=== PATIENT | female | born 1985 | race Caucasian/White ===

== ENCOUNTER 2018-02-19 12:21 | Emergency (ER) | payer OTHER ==
[~2018-02-19] VITALS: Ht 154.9 cm; Wt 53.8 kg
--- NOTE | 2018-02-19 12:29 | NUR ---
PT AMBULATES TO BED 12
[2018-02-19 12:30] VITALS: BP 108/64
--- NOTE | 2018-02-19 12:35 | NUR ---
32YO F BIB SELF FOR POSSIBLE BARTHOLIN CYST X4-5YRS. PT HAS BEEN TREATED WITH ABX BEFORE WITH NO IMPROVEMENT. DENIES N/V/D; SKIN IS PINK/WARM/DRY; AAOX4 WITH EVEN AND STEADY GAIT; LUNGS CLEAR BL; HR EVEN AND REGULAR; PT DENIES ANY FEVER, CP, SOB, OR COUGH AT THIS TIME; PATIENT STATES PAIN OF 5/10 AT THIS TIME; VSS; PATIENT POSITIONED FOR COMFORT; HOB ELEVATED; BEDRAILS UP X2; BED DOWN. ER MD MADE AWARE OF PT STATUS.
--- NOTE | 2018-02-19 13:10 | NUR ---
DR GALVAN AT BEDSIDE TO EXAMINE WOUND.
[2018-02-19 13:18] VITALS: BP 108/64
--- NOTE | 2018-02-19 13:18 | NUR ---
Patient discharged with v/s stable. Written and verbal after care instructions given and explained. Patient verbalized understanding. Ambulatory with steady gait. All questions addressed prior to discharge. Advised to follow up with PMD within 1-2 days.
== END 2018-02-19 13:18 | disposition home or self-care (01) ==
LOC: MED 12:21
DX: L98.8 Other specified disorders of the skin and subcutaneous tissue (principal); Z88.6 Allergy status to analgesic agent
CPT/HCPCS: 99281

== ENCOUNTER 2018-08-23 11:44 | Emergency (ER) | payer OTHER ==
[~2018-08-23] VITALS: Ht 154.9 cm; Wt 55.6 kg
[2018-08-23 11:47] VITALS: BP 122/78
--- NOTE | 2018-08-23 11:50 | NUR ---
BIB SELF. AAO X 4 C/O DIARRHEA X3 DAYS. LAST BM TODAY X 3 LOOSE STOOL. PT REPORTS GREENISH/BLACK WATERY DIARRHEA. PT REPORTS CRAMPING ABD AND LOWER BACK PAIN 11/06. DENIES N/V, FEVER, COUGH. DENIES DYSURIA. DENIES SOB. HOB UP. BED SIDE RAILS UP X1. ON LOW BED POSITION, LOCKED. ER MADE AWARE OF PT STATUS.
--- NOTE | 2018-08-23 12:19 | NUR ---
DR MANRIQUE AT BEDSIDE FOR PT EVALUATION.
[2018-08-23] MEDS ORDERED: NACL 0.9% 1,000 ML IV ONE (12:25)
[2018-08-23 13:06] LABS: BASOPHILS % (AUTO) 0.3 % (0.0-2.0); EOSINOPHILS # (AUTO) 0.2 K/uL (0-0.4); EOSINOPHILS % (AUTO) 3.8 % (0.0-4.0); HEMOGLOBIN 15.3 g/dL (12.0-16.0); LYMPHOCYTES # (AUTO) 1.2 K/uL (2.5-16.5); LYMPHOCYTES % (AUTO) 28.1 % (20.5-51.1); MEAN CORPUSCULAR HEMOGLOBIN 32 pg (27-31); MEAN CORPUSCULAR HGB CONC 34 g/dL (33-37); MEAN CORPUSCULAR VOLUME 94.3 fL (80-94); MONOCYTES # (AUTO) 0.3 K/uL (0.8-1.0); MONOCYTES % (AUTO) 6.7 % (1.7-9.3); NEUTROPHILS # (AUTO) 2.7 K/uL (1.8-7.7); NEUTROPHILS % (AUTO) 61.1 % (42.2-75.2); PLATELET COUNT (AUTO) 279 K/uL (140-450); RED BLOOD CELL COUNT(AUTO) 4.78 MIL/uL (4.20-5.40); WHITE BLOOD COUNT (AUTO) 4.4 K/uL (4.8-10.8)
[2018-08-23 13:07] LABS: APPEARANCE,URINE SL CLOUDY (CLEAR); BILIRUBIN,URINE NEGATIVE (NEGATIVE); BLOOD, URINE 3+ (NEGATIVE); COLOR,URINE YELLOW (YELLOW); LEUKOCYTE ESTERASE ,URINE TRACE (NEGATIVE); NITRITE, URINE NEGATIVE (NEGATIVE); PH,URINE 5.5 (5.0-9.0); UGLUCOSE NEGATIVE (NEGATIVE)
[2018-08-23 13:13] LABS: ANION GAP 12.1 (8-16); CARBON DIOXIDE 25.7 mmol/L (21-32); CREATININE 0.7 mg/dL (0.6-1.3); POTASSIUM 4.8 mmol/L (3.5-5.1)
[2018-08-23 13:19] LABS: ALBUMIN 3.8 g/dL (3.4-5.0); TOTAL BILIRUBIN 1.3 mg/dL (0.0-1.0)
[2018-08-23 13:42] LABS: WBC,URINE 0-5 /HPF (0-5)
[2018-08-23 13:44] LABS: YEAST,URINE Rare /HPF (None Seen)
[2018-08-23 16:40] VITALS: BP 121/72
== END 2018-08-23 16:40 | disposition home or self-care (01) ==
LOC: MED 11:44
DX: R19.7 Diarrhea, unspecified (principal); Z88.5 Allergy status to narcotic agent
CPT/HCPCS: 36415; 80053; 81001; 81025; 85025; 96360; 99283; J7030; 81002; 96361

== ENCOUNTER 2019-01-21 15:30 | Emergency (ER) | payer OTHER ==
[~2019-01-21] VITALS: Ht 152.4 cm; Wt 58.2 kg
[2019-01-21 15:36] VITALS: BP 128/84
--- NOTE | 2019-01-21 15:45 | NUR ---
Patient ambulated to bed 7. RN evaluating patient at bedside.
--- NOTE | 2019-01-21 15:51 | NUR ---
Dr. Morel evaluating patient at bedside.
--- NOTE | 2019-01-21 15:54 | NUR ---
PT C/O HEADACHE AND RT SIDED GROIN PAIN X5 HRS. 02/06 SHARP INTERMITTENT CRAMPING. DENIES FEVER. NAUSEA WHEN PAIN OCCURS. DENIES V/D. PT STATES WHITE, NON ODOROUS VAGINAL DISCHARGE. PT STATES SHE NOTICED AN INCREASE IN FREQUENCY OF URINATION, DENIES PAINFUL URINATION. LMP 12/04/09. PT HAS NOT TAKEN ANY MEDS. PT RESTING IN BED, VSS. MEDHX: DENIES ALLERGIES: CODEINE, MORPHINE
[2019-01-21] MEDS ORDERED: KETOROLAC 60 MG/2 ML VIAL IM ONE (16:05)
--- NOTE | 2019-01-21 16:55 | NUR ---
PT AMBULATED TO RESTROOM.
[2019-01-21 17:00] LABS: BASOPHILS % (AUTO) 0.5 % (0.0-2.0); EOSINOPHILS # (AUTO) 0.1 K/uL (0-0.4); EOSINOPHILS % (AUTO) 1.7 % (0.0-4.0); HEMATOCRIT 43.4 % (36-48); HEMOGLOBIN 14.7 g/dL (12.0-16.0); LYMPHOCYTES # (AUTO) 2.8 K/uL (2.5-16.5); LYMPHOCYTES % (AUTO) 47.6 % (20.5-51.1); MEAN CORPUSCULAR HEMOGLOBIN 32 pg (27-31); MEAN CORPUSCULAR HGB CONC 34 g/dL (33-37); MEAN CORPUSCULAR VOLUME 95.2 fL (80-94); MONOCYTES # (AUTO) 0.3 K/uL (0.8-1.0); MONOCYTES % (AUTO) 5.2 % (1.7-9.3); NEUTROPHILS # (AUTO) 2.7 K/uL (1.8-7.7); PLATELET COUNT (AUTO) 291 K/uL (140-450); RED BLOOD CELL COUNT(AUTO) 4.56 MIL/uL (4.20-5.40); RED CELL DISTRIBUTION WIDTH 12.1 % (11.6-13.7); WHITE BLOOD COUNT (AUTO) 5.9 K/uL (4.8-10.8)
[2019-01-21 17:12] LABS: ANION GAP 15.3 (8-16); CARBON DIOXIDE 25.4 mmol/L (21-32); CREATININE 0.6 mg/dL (0.6-1.3); POTASSIUM 3.7 mmol/L (3.5-5.1)
[2019-01-21 17:17] LABS: ALBUMIN 4.3 g/dL (3.4-5.0); TOTAL BILIRUBIN 1.8 mg/dL (0.0-1.0)
--- NOTE | 2019-01-21 17:19 | NUR ---
PT RESTING IN BED, VSS AT THIS TIME.
[2019-01-21 17:51] LABS: APPEARANCE,URINE CLEAR (CLEAR); BILIRUBIN,URINE NEGATIVE (NEGATIVE); BLOOD, URINE TRACE-I (NEGATIVE); LEUKOCYTE ESTERASE ,URINE NEGATIVE (NEGATIVE); NITRITE, URINE NEGATIVE (NEGATIVE); PH,URINE 5.5 (5.0-9.0); UGLUCOSE NEGATIVE (NEGATIVE)
[2019-01-21 17:59] LABS: COLOR,URINE STRAW (YELLOW)
[2019-01-21 18:37] LABS: RBC,URINE NONE SEEN /HPF (0-5)
[2019-01-21 18:38] LABS: WBC,URINE NONE SEEN /HPF (0-5)
[2019-01-21 18:56] VITALS: BP 124/82
--- NOTE | 2019-01-21 18:56 | NUR ---
Patient discharged with v/s stable. Written and verbal after care instructions given and explained. Patient alert, oriented and verbalized understanding of instructions. Ambulatory with to home. All questions addressed prior to discharge. ID band removed. Patient advised to follow up with PMD. Rx of NAPROSYN given. Patient educated on indication of medication including possible reaction and side effects. Opportunity to ask questions provided and answered.
== END 2019-01-21 18:56 | disposition home or self-care (01) ==
LOC: MED 15:30
DX: R51 Headache (principal); R10.31 Right lower quadrant pain; R42 Dizziness and giddiness; Z88.5 Allergy status to narcotic agent
CPT/HCPCS: 36415; 76856; 80053; 81001; 81025; 85025; 93976; 96372; 99284; J1885; Q0092

== ENCOUNTER 2019-12-21 16:28 | Emergency (ER) | payer OTHER ==
[~2019-12-21] VITALS: Ht 152.4 cm; Wt 58.1 kg
[2019-12-21 16:30] VITALS: BP 133/78
--- NOTE | 2019-12-21 16:42 | NUR ---
PATIENT AMBULATED TO BED 7.
--- NOTE | 2019-12-21 16:48 | NUR ---
dr lynne at bedside evaluating pt.
--- NOTE | 2019-12-21 16:52 | NUR ---
aleena at bedside.
--- NOTE | 2019-12-21 16:55 | NUR ---
labs at bedside.
[2019-12-21 17:02] LABS: BASOPHILS % (AUTO) 0.4 % (0.0-2.0); EOSINOPHILS # (AUTO) 0.1 K/uL (0-0.4); EOSINOPHILS % (AUTO) 2.1 % (0.0-4.0); HEMATOCRIT 42.8 % (36-48); HEMOGLOBIN 14.6 g/dL (12.0-16.0); LYMPHOCYTES # (AUTO) 2.5 K/uL (2.5-16.5); LYMPHOCYTES % (AUTO) 42.3 % (20.5-51.1); MEAN CORPUSCULAR HEMOGLOBIN 33 pg (27-31); MEAN CORPUSCULAR HGB CONC 34 g/dL (33-37); MEAN CORPUSCULAR VOLUME 95.4 fL (80-94); MONOCYTES # (AUTO) 0.3 K/uL (0.8-1.0); MONOCYTES % (AUTO) 4.7 % (1.7-9.3); NEUTROPHILS % (AUTO) 50.5 % (42.2-75.2); PLATELET COUNT (AUTO) 304 K/uL (140-450); RED BLOOD CELL COUNT(AUTO) 4.48 MIL/uL (4.20-5.40); WHITE BLOOD COUNT (AUTO) 5.9 K/uL (4.8-10.8)
--- NOTE | 2019-12-21 17:10 | NUR ---
C/O VAGINAL BLEEDING , LOWER ABDOMINAL PAIN 8/10 X 1 MONTH. DENIES DYSURIA.PT AOX4 , AFIBRILE , AMBULATORY WITH STEADY GAIT , PINK PALPEBRAL CONJUNCTIVA , ANICTERIC SCLERA , SCE , FLAT SOFT ABDOMEN. MED HX: OVARY CYST
[2019-12-21 17:30] LABS: ALBUMIN 4.2 g/dL (3.4-5.0); ANION GAP 18.1 (8-16); CARBON DIOXIDE 20.9 mmol/L (21-32); CREATININE 0.9 mg/dL (0.6-1.3); TOTAL BILIRUBIN 1.8 mg/dL (0.0-1.0)
[2019-12-21 18:01] VITALS: BP 130/78
--- NOTE | 2019-12-21 18:03 | NUR ---
Patient discharged with v/s stable. Written and verbal after care instructions given and explained. Patient verbalized understanding. Ambulatory with steady gait. All questions addressed prior to discharge. Advised to follow up with PMD.
[2019-12-21 18:08] LABS: BILIRUBIN,URINE NEGATIVE (NEGATIVE); BLOOD, URINE 3+ (NEGATIVE); UGLUCOSE NEGATIVE (NEGATIVE)
[2019-12-21 18:15] LABS: APPEARANCE,URINE BLOODY (CLEAR); COLOR,URINE RED (YELLOW); LEUKOCYTE ESTERASE ,URINE NEGATIVE (NEGATIVE); NITRITE, URINE NEGATIVE (NEGATIVE)
[2019-12-21 18:16] LABS: RBC,URINE TOO NUMEROUS TO COUN /HPF (0-5); WBC,URINE NONE SEEN /HPF (0-5)
== END 2019-12-21 18:03 | disposition home or self-care (01) ==
LOC: MED 16:28
DX: N93.8 Other specified abnormal uterine and vaginal bleeding (principal); N39.0 Urinary tract infection, site not specified; Z88.5 Allergy status to narcotic agent
CPT/HCPCS: 36415; 76856; 80053; 81001; 81025; 85025; 99284; Q0092

== ENCOUNTER 2019-12-23 18:19 | Emergency (ER) | payer OTHER ==
[~2019-12-23] VITALS: Ht 160 cm; Wt 54.4 kg
[2019-12-23 18:29] VITALS: BP 111/76
--- NOTE | 2019-12-23 18:34 | NUR ---
34 Y/O FEMALE C/O SCANT BLEEDING FOR 1 MONTH WHICH HAS WORSENED ON SUNDAY AND TODAY, PT REPORTS HEAVY FLOW WITH LARGE CLOTS. C/O WEAKNESS, FATIGUE AND DIZZINESS X2 WEEKS. DENIES ANY N/V/D. PT IS PALE, WARM AND DRY. VSS. AMBULATORY WITH STEADY GAIT NO PMH
[2019-12-23 18:59] LABS: BASOPHILS % (AUTO) 0.5 % (0.0-2.0); EOSINOPHILS # (AUTO) 0.1 K/uL (0-0.4); EOSINOPHILS % (AUTO) 1.8 % (0.0-4.0); HEMATOCRIT 40.9 % (36-48); HEMOGLOBIN 14.2 g/dL (12.0-16.0); LYMPHOCYTES # (AUTO) 2.7 K/uL (2.5-16.5); LYMPHOCYTES % (AUTO) 42.4 % (20.5-51.1); MEAN CORPUSCULAR HEMOGLOBIN 33 pg (27-31); MEAN CORPUSCULAR HGB CONC 35 g/dL (33-37); MEAN CORPUSCULAR VOLUME 94.2 fL (80-94); MONOCYTES # (AUTO) 0.3 K/uL (0.8-1.0); MONOCYTES % (AUTO) 5.3 % (1.7-9.3); NEUTROPHILS # (AUTO) 3.2 K/uL (1.8-7.7); PLATELET COUNT (AUTO) 290 K/uL (140-450); RED BLOOD CELL COUNT(AUTO) 4.34 MIL/uL (4.20-5.40); RED CELL DISTRIBUTION WIDTH 11.8 % (11.6-13.7); WHITE BLOOD COUNT (AUTO) 6.4 K/uL (4.8-10.8)
[2019-12-23 19:32] VITALS: BP 111/76
== END 2019-12-23 19:26 | disposition home or self-care (01) ==
LOC: MED 18:19
DX: N93.8 Other specified abnormal uterine and vaginal bleeding (principal); Z88.5 Allergy status to narcotic agent
CPT/HCPCS: 36415; 81025; 85025; 99283

== ENCOUNTER 2020-04-15 18:09 | Emergency (ER) | payer OTHER ==
[~2020-04-15] VITALS: Ht 152.4 cm; Wt 57.6 kg
[2020-04-15 18:14] VITALS: BP 130/83
--- NOTE | 2020-04-15 18:18 | NUR ---
Patient being evaluated by physician at [facility].
--- NOTE | 2020-04-15 18:18 | NUR ---
Kecia sims in [facility] - 04/15/20 at 1818 by MED1 Patient being evaluated by physician at bedside.
[2020-04-15] MEDS ORDERED: HALOPERIDOL IM 5 MG/ML VIAL IM STA (18:20)
[2020-04-15] MEDS ORDERED: KETOROLAC 30 MG/ML VIAL IM STA (18:20)
[2020-04-15] MEDS ORDERED: ACETAMINOPHEN 325 MG TAB PO STA (19:20)
[2020-04-15] MEDS ORDERED: PROCHLORPERAZINE 5 MG TAB PO ONE (19:20)
[2020-04-15] MEDS ORDERED: KETOROLAC 30 MG/ML VIAL ONE (19:35)
--- NOTE | 2020-04-15 19:50 | NUR ---
PT REFUSED TYLENOL - STATES SHE TOOK A DOSE ALREADY AT 1900 TODAY. ERMD MADE AWARE.
[2020-04-15 20:00] VITALS: BP 130/83
--- NOTE | 2020-04-15 20:00 | NUR ---
Patient discharged with v/s stable. Written and verbal after care instructions given and explained. Patient alert, oriented and verbalized understanding of instructions. Ambulatory with steady gait. All questions addressed prior to discharge. ID band removed. Patient advised to follow up with PMD. Rx of MOTRIN & COMPAZINE given. Patient educated on indication of medication including possible reaction and side effects. Opportunity to ask questions provided and answered.
== END 2020-04-15 20:00 | disposition home or self-care (01) ==
LOC: MED 18:09
DX: G43.909 Migraine, unspecified, not intractable, without status migrainosus (principal)
CPT/HCPCS: 96372; 99283; J1885; Q0164

== ENCOUNTER 2020-06-25 20:18 | Emergency (ER) | payer OTHER ==
[~2020-06-25] VITALS: Ht 152.4 cm; Wt 56.7 kg
[2020-06-25 20:25] VITALS: BP 117/90
--- NOTE | 2020-06-25 20:25 | NUR ---
PATINET TO REMAIN IN OF TENT FOR MEDICAL EVALUATION.
--- NOTE | 2020-06-25 20:30 | NUR ---
SEE COMPLETE ASSESSMENT.
--- NOTE | 2020-06-25 21:07 | NUR ---
ERMD EVALUATING PATIENT IN OF TENT.
[2020-06-25] MEDS ORDERED: LOPE-289 PO (21:20)
[2020-06-25] MEDS ORDERED: IBUP-2213 PO (21:20)
[2020-06-25] MEDS ORDERED: ONDA8TAB87 PO (21:20)
--- NOTE | 2020-06-25 21:30 | NUR ---
NOVEL COVID TEST COLLECTED AND SENT TO LAB.
[2020-06-25 21:35] VITALS: BP 117/90
--- NOTE | 2020-06-25 21:35 | NUR ---
Patient discharged with v/s stable. Written and verbal after care instructions given and explained. Patient alert, oriented and verbalized understanding of instructions. Ambulatory with steady gait. All questions addressed prior to discharge. ID band removed. Patient advised to follow up with PMD. Rx of IBUPROFEN, LOPERAMIDE, ONDANSETRON given. Patient educated on indication of medication including possible reaction and side effects. Opportunity to ask questions provided and answered.
== END 2020-06-25 21:35 | disposition home or self-care (01) ==
LOC: MED 20:18
DX: U07.1 COVID-19 (principal)
CPT/HCPCS: 99283; U0003

== ENCOUNTER 2020-07-21 17:01 | Emergency (ER) | payer OTHER ==
[~2020-07-21] VITALS: Ht 152.4 cm; Wt 55.3 kg
[~2020-07-21 17:01] MED LIST: IBUP-2213 PO; LOPE-289 PO; ONDA8TAB87 PO
[2020-07-21 17:14] VITALS: BP 119/77
[2020-07-21] MEDS ORDERED: ALBU0.0912 IH (18:27)
[2020-07-21] MEDS ORDERED: AZIT250T3 PO (18:28)
[2020-07-21] MEDS ORDERED: BENZ-196 PO (18:28)
[2020-07-21] MEDS ORDERED: PRED10TA5 PO (18:28)
[2020-07-21 18:38] VITALS: BP 119/77
== END 2020-07-21 18:38 | disposition home or self-care (01) ==
LOC: MED 17:01
DX: R05 Cough (principal); Z88.5 Allergy status to narcotic agent; Z79.899 Other long term (current) drug therapy
CPT/HCPCS: 71045; 99283

== ENCOUNTER 2021-03-18 15:01 | Emergency (ER) | payer OTHER ==
[~2021-03-18] VITALS: Ht 149.9 cm; Wt 58.1 kg
[~2021-03-18 15:01] MED LIST changes: +ALBU0.0912 IH; +AZIT250T3 PO; +BENZ-196 PO; +PRED10TA5 PO
[2021-03-18 15:09] VITALS: BP 133/93
--- NOTE | 2021-03-18 17:10 | NUR ---
PT RETURNED BACK FROM XRAY INTO LOBBY
--- NOTE | 2021-03-18 18:21 | NUR ---
PT SWABBED FOR COVID NANCY AND FLU AT THIS TIME
[2021-03-18] MEDS ORDERED: PROM118S5 PO (19:42)
[2021-03-18] MEDS ORDERED: AZIT250T4 PO (19:42)
[2021-03-18 19:58] VITALS: BP 133/93
--- NOTE | 2021-03-18 19:59 | NUR ---
Pt assessed and discharged by CLAUDIA Chaidez
--- NOTE | 2021-03-18 20:00 | NUR ---
Patient discharged with v/s stable. Written and verbal after care instructions given and explained. Patient alert, oriented and verbalized understanding of instructions. Ambulatory with steady gait. All questions addressed prior to discharge. ID band removed. Patient advised to follow up with PMD. Rx of azithroymic and Promethazine DM given. Patient educated on indication of medication including possible reaction and side effects. Opportunity to ask questions provided and answered.
== END 2021-03-18 20:00 | disposition home or self-care (01) ==
LOC: MED 15:01
DX: J40 Bronchitis, not specified as acute or chronic (principal); Z20.822 Contact with and (suspected) exposure to COVID-19; Z88.5 Allergy status to narcotic agent; Z79.899 Other long term (current) drug therapy
CPT/HCPCS: 71045; 87426; 87804; 99284; Q0092

== ENCOUNTER 2021-04-30 13:36 | Emergency (ER) | payer OTHER ==
[~2021-04-30] VITALS: Ht 149.9 cm; Wt 72.6 kg
[~2021-04-30 13:36] MED LIST changes: +AZIT250T4 PO; +PROM118S5 PO
[2021-04-30 15:34] VITALS: BP 110/71
[2021-04-30] MEDS ORDERED: HYDROcodone/APAP 5/325 MG 1 TAB TAB PO ONE ×2 (17:30→20:45)
[2021-04-30] MEDS ORDERED: DIAZ5TAB8 PO (19:28)
[2021-04-30] MEDS ORDERED: NAPR-54 PO (19:28)
[2021-04-30 20:53] VITALS: BP 110/71
--- NOTE | 2021-04-30 20:53 | NUR ---
Patient discharged with v/s stable. Written and verbal after care instructions given and explained. Patient alert, oriented and verbalized understanding of instructions. Ambulatory with steady gait. All questions addressed prior to discharge. ID band removed. Patient advised to follow up with PMD. Rx of DIAZEPAM AND NAPROXEN given. Patient educated on indication of medication including possible reaction and side effects. Opportunity to ask questions provided and answered. VSS, A/OX4, CALM DEMEANOR, UNLABORED BREATHING, STEADY GAIT. PT SEEN BY ER MD, NO NURSING INTERVENTION NEEDED.
== END 2021-04-30 20:53 | disposition home or self-care (01) ==
LOC: MED 13:36
DX: M54.50 Low back pain, unspecified (principal); Z79.899 Other long term (current) drug therapy; Z88.5 Allergy status to narcotic agent
CPT/HCPCS: 72110; 99283

== ENCOUNTER 2021-06-23 22:54 | Emergency (ER) | payer OTHER ==
[~2021-06-23] VITALS: Ht 149.9 cm; Wt 60.8 kg
[~2021-06-23 22:54] MED LIST changes: +DIAZ5TAB8 PO; +NAPR-54 PO
[2021-06-23 23:00] VITALS: BP 122/79
--- NOTE | 2021-06-23 23:11 | NUR ---
PT IN RESTROOM FOR URINE COLLECTION.
--- NOTE | 2021-06-23 23:14 | NUR ---
PT IN TRIAGE FOR EKG.
--- NOTE | 2021-06-23 23:22 | NUR ---
PT TAKEN BACK TO LOBBY. WAITING FOR BED.
[2021-06-23 23:40] LABS: BASOPHILS % (AUTO) 0.3 % (0.0-2.0); EOSINOPHILS # (AUTO) 0.1 K/uL (0-0.4); EOSINOPHILS % (AUTO) 0.8 % (0.0-4.0); HEMATOCRIT 36.6 % (36-48); HEMOGLOBIN 12.6 g/dL (12.0-16.0); LYMPHOCYTES # (AUTO) 2.4 K/uL (2.5-16.5); LYMPHOCYTES % (AUTO) 29.8 % (20.5-51.1); MEAN CORPUSCULAR HEMOGLOBIN 33 pg (27-31); MEAN CORPUSCULAR HGB CONC 35 g/dL (33-37); MEAN CORPUSCULAR VOLUME 95.5 fL (80-94); MONOCYTES # (AUTO) 0.6 K/uL (0.8-1.0); MONOCYTES % (AUTO) 7.6 % (1.7-9.3); NEUTROPHILS % (AUTO) 61.5 % (42.2-75.2); PLATELET COUNT (AUTO) 285 K/uL (140-450); RED BLOOD CELL COUNT(AUTO) 3.83 MIL/uL (4.20-5.40); RED CELL DISTRIBUTION WIDTH 12.2 % (11.6-13.7); WHITE BLOOD COUNT (AUTO) 8.2 K/uL (4.8-10.8)
--- NOTE | 2021-06-23 23:51 | NUR ---
PT TAKEN TO ER BED 05
[2021-06-24 00:04] LABS: ALBUMIN 3.3 g/dL (3.4-5.0); ANION GAP 13.4 (8-16); CARBON DIOXIDE 25.7 mmol/L (21-32); CREATININE 0.6 mg/dL (0.6-1.3); POTASSIUM 4.1 mmol/L (3.5-5.1); TOTAL BILIRUBIN 0.4 mg/dL (0.0-1.0)
--- NOTE | 2021-06-24 00:57 | NUR ---
Dr. Almendarez examining patient.
[2021-06-24] MEDS ORDERED: ACETAMINOPHEN 325 MG TAB PO ONE (01:25)
[2021-06-24 01:29] LABS: APPEARANCE,URINE CLEAR (CLEAR); BILIRUBIN,URINE NEGATIVE (NEGATIVE); BLOOD, URINE NEGATIVE (NEGATIVE); COLOR,URINE YELLOW (YELLOW); LEUKOCYTE ESTERASE ,URINE NEGATIVE (NEGATIVE); NITRITE, URINE NEGATIVE (NEGATIVE); UGLUCOSE NEGATIVE (NEGATIVE)
--- NOTE | 2021-06-24 02:00 | NUR ---
35 YO F BIB SELF WITH C/O LEFT CHEST PAIN/LOWER ABD PAIN. PT DENIES N/F/V/ COUGH/ SOB. PT IS 15 WEEKS WITH 3RD CHILD. PT THINKS SHE OVER EXERTED HERSELF AND FEELS FATIGUED. A&O X4. EVEN AND STEADY GAIT. PMH: NONE ALLERGIES: CODIENE / MORPHINE
[2021-06-24] MEDS ORDERED: ACET-10509 PO (02:10)
[2021-06-24 02:51] VITALS: BP 120/76
--- NOTE | 2021-06-24 02:51 | NUR ---
Patient discharged with v/s stable. Written and verbal after care instructions given and explained. Patient alert, oriented and verbalized understanding of instructions. Ambulatory with steady gait. All questions addressed prior to discharge. ID band removed. Patient advised to follow up with PMD. Rx of TYLENOL given. Opportunity to ask questions provided and answered.
== END 2021-06-24 02:51 | disposition home or self-care (01) ==
LOC: MED 22:54
DX: O26.892 Other specified pregnancy related conditions, second trimester (principal); R10.30 Lower abdominal pain, unspecified; R53.1 Weakness; R42 Dizziness and giddiness; Z88.5 Allergy status to narcotic agent; Z79.899 Other long term (current) drug therapy; Z3A.15 15 weeks gestation of pregnancy
CPT/HCPCS: 36415; 80053; 81003; 81025; 85025; 93005; 99285

== ENCOUNTER 2021-09-13 05:18 | Emergency (ER) | payer OTHER ==
[~2021-09-13] VITALS: Ht 149.9 cm; Wt 64.4 kg
[2021-09-13 02:27] VITALS: BP 121/74
[~2021-09-13 05:18] MED LIST changes: +ACET-10509 PO; +ACETAMINOPHEN 325 MG TAB ONE; +ACETAMINOPHEN 325 MG TAB PO PRN
[2021-09-13 05:20] VITALS: BP 118/56
--- NOTE | 2021-09-13 05:20 | NUR ---
Kecia sims in [facility] - 09/13/21 at 0605 by ISA [id number]- PATIENT TX FROM L&D TO ER
--- NOTE | 2021-09-13 05:40 | NUR ---
FALL AT THE [employer] YESTERDAY AND LANDED ON STOMACH. PATIENT IS "6MTHS AND 4 DAYS ". PMH: DENIES ALLERGIES: CODEINE, MORPHINE
--- NOTE | 2021-09-13 06:05 | NUR ---
[id number]- PATIENT TX FROM L&D TO ER
== END 2021-09-13 06:47 | disposition home or self-care (01) ==
LOC: MED 05:18 → EDSTATUS 05:18 → MED 06:47
DX: O9A.212 Injury, poisoning and certain other consequences of external causes complicating pregnancy, second trimester (principal); S39.012A Strain of muscle, fascia and tendon of lower back, initial encounter; M62.838 Other muscle spasm; Z88.5 Allergy status to narcotic agent; X58.XXXA Exposure to other specified factors, initial encounter; Y93.89 Activity, other specified; Y92.89 Other specified places as the place of occurrence of the external cause; Y99.8 Other external cause status
CPT/HCPCS: 59025; 81000; 99282

== ENCOUNTER 2023-06-02 16:54 | Inpatient (IN) | payer OTHER ==
[~2023-06-02] VITALS: Ht 152.4 cm; Wt 70.8 kg
[2023-06-02] MEDS ORDERED: MAG SULF 2000 MG/WATER PREMIX 100 ML IV ONE (17:50)
[2023-06-02] MEDS ORDERED: PREN-537 PO (17:56)
[2023-06-02 18:29] LABS: BASOPHILS % (AUTO) 0.2 % (0.0-2.0); EOSINOPHILS % (AUTO) 0.5 % (0.0-4.0); HEMOGLOBIN 11.6 g/dL (12.0-16.0); LYMPHOCYTES # (AUTO) 1.4 K/uL (2.5-16.5); LYMPHOCYTES % (AUTO) 25.3 % (20.5-51.1); MEAN CORPUSCULAR HEMOGLOBIN 31 pg (27-31); MEAN CORPUSCULAR HGB CONC 34 g/dL (33-37); MEAN CORPUSCULAR VOLUME 90.6 fL (80-94); MONOCYTES # (AUTO) 0.3 K/uL (0.8-1.0); NEUTROPHILS # (AUTO) 3.7 K/uL (1.8-7.7); PLATELET COUNT (AUTO) 294 K/uL (140-450); RED BLOOD CELL COUNT(AUTO) 3.75 MIL/uL (4.20-5.40); RED CELL DISTRIBUTION WIDTH 13.6 % (11.6-13.7); WHITE BLOOD COUNT (AUTO) 5.4 K/uL (4.8-10.8)
[2023-06-02 18:34] LABS: APPEARANCE,URINE CLEAR (CLEAR); BILIRUBIN,URINE NEGATIVE (NEGATIVE); BLOOD, URINE NEGATIVE (NEGATIVE); COLOR,URINE YELLOW (YELLOW); LEUKOCYTE ESTERASE ,URINE TRACE (NEGATIVE); NITRITE, URINE NEGATIVE (NEGATIVE); PROTEIN,URINE NEGATIVE (NEGATIVE); UGLUCOSE 3+ (NEGATIVE)
[2023-06-02] MEDS: LACTATED RINGERS 1,000 ML IV SCH (18:39)
[2023-06-02] MEDS: TERBUTALINE 1 MG/ML VIAL SUBQ SCH ×2 (18:45→19:35)
[2023-06-02 18:47] LABS: ALBUMIN 2.4 g/dL (3.4-5.0); ANION GAP 14.2 (8-16); CALCIUM 7.8 mg/dL (8.5-10.1); CARBON DIOXIDE 19.9 mmol/L (21-32); CREATININE 0.5 mg/dL (0.6-1.3); POTASSIUM 3.1 mmol/L (3.5-5.1); TOTAL BILIRUBIN 1.3 mg/dL (0.0-1.0); TOTAL PROTEIN, SERUM 6.8 g/dL (6.4-8.2)
[2023-06-02] MEDS: BETAMETH ACET/BETAMETH NA PH 30 MG/5 ML VIAL IM SCH (18:47)
[2023-06-02 19:06] LABS: HIV RAPID SCREEN NON-REACTIVE (NON REACTIV)
[2023-06-02] MEDS: MAG SULF 20 GM/H2O PREMIX DRIP 500 ML IV PRN (19:18)
[2023-06-02 19:27] LABS: INR 0.99 (0.8-1.2); PARTIAL THROMBOPLASTIN TIME 29.2 secs (22-35.6); PROTHROMBIN TIME 10.4 secs (10.8-13.4)
[2023-06-02 20:02] LABS: AMPHETAMINE, URINE NEGATIVE ng/ml (NEG <=1000); BARBITURATE, URINE NEGATIVE ng/ml (NEG <=200); BENZODIAZEPINE, URINE NEGATIVE ng/mL (NEG <=200); CANNABINOID, URINE NEGATIVE ng/mL (NEG <=50); COCAINE, URINE NEGATIVE ng/mL (NEG <=300); OPIATE, URINE NEGATIVE ng/mL (NEG <=2000); PHENCYCLIDINE SCREEN,URINE NEGATIVE ng/mL (NEG <=25)
[2023-06-03] MEDS: LACTATED RINGERS 1,000 ML IV SCH ×2 (04:24→16:54)
[2023-06-03] MEDS: MAG SULF 20 GM/H2O PREMIX DRIP 500 ML IV PRN ×2 (04:45→15:38)
[2023-06-03] MEDS ORDERED: ALUMINUM HYD/MAG/SIMETHICONE 30 ML UDC PO PRN (08:25)
[2023-06-03] MEDS: BETAMETH ACET/BETAMETH NA PH 30 MG/5 ML VIAL IM SCH (18:26)
[2023-06-04] MEDS: LACTATED RINGERS 1,000 ML IV SCH ×2 (05:28→19:59)
[2023-06-04] MEDS: MAG SULF 20 GM/H2O PREMIX DRIP 500 ML IV PRN (05:31)
[2023-06-04 09:26] LABS: RAPID PLASMA REAGIN NON-REACTIVE (Non Reactiv)
== END 2023-06-05 08:53 | disposition home or self-care (01) | DRG 566 ==
LOC: MLD 16:54 → OBSVTOIN 06-04 15:49
PROVIDERS: ADMIT Obstetrics & Gynecology; ATTEND Obstetrics & Gynecology
DX: O60.03 Preterm labor without delivery, third trimester (principal); Z20.822 Contact with and (suspected) exposure to COVID-19; Z3A.33 33 weeks gestation of pregnancy
CPT/HCPCS: 36415; 76805; 76817; 80053; 80305; 81003; 83735; 85025; 85384; 85610; 85730; 86592; 86762; 86886; 86900; 86901; 87340; G0378; J0702; J3105; J3475; Q0092